=== PATIENT | female | born 1960 | race American Indian/Alaskan Native ===

== ENCOUNTER 2019-07-08 13:52 | Emergency (ER) | payer SELFPAY ==
[2019-07-08 14:20] VITALS: BP 153/67
[2019-07-08] MEDS ORDERED: IBUPROFEN 800 MG TAB PO ONE (15:42)
[2019-07-08 16:08] LABS: Bacteria,Urine 1+ /HPF (Negative); Bilirubin,Urine NEG (Negative); Blood,Urine NEG (Negative); Color,Urine Yellow (Yellow); Mucus,Urine FEW /HPF; Protein,Urine <15 mg/dL mg/dL (Negative); Urobilinogen,Urine < 2.0 mg/dL (<2.0)
--- NOTE | 2019-07-08 16:26 | XRay Report ---
RIGHT FOOT 3 VIEWS. INDICATION / CLINICAL INFORMATION: pain to lateral foot s/p injury COMPARISON: None available. FINDINGS: BONES / JOINT(S): Spiral fracture involving the shaft of the proximal phalanx of the fifth digit. Edmund or fragments are relatively well aligned. No significant arthritis. SOFT TISSUES: No significant abnormality. ADDITIONAL FINDINGS: None. Signer Name: Ever Cornelius MD Signed: 07/08/2019 4:22 PM Workstation Name: [id number]
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
== END 2019-07-08 16:58 | disposition home or self-care (01) ==
LOC: ED 13:52
DX: S92.511A Displaced fracture of proximal phalanx of right lesser toe(s), initial encounter for closed fracture (principal); I10 Essential (primary) hypertension; K21.9 Gastro-esophageal reflux disease without esophagitis; E78.00 Pure hypercholesterolemia, unspecified; Z98.51 Tubal ligation status; Z79.899 Other long term (current) drug therapy; Z88.0 Allergy status to penicillin; W22.8XXA Striking against or struck by other objects, initial encounter; Y93.89 Activity, other specified; Y92.89 Other specified places as the place of occurrence of the external cause; Y99.8 Other external cause status
CPT/HCPCS: 81001